=== PATIENT | male | born 1945 | race Caucasian/White ===

== ENCOUNTER → 2017-06-03 | Outpatient (CLI) | payer OTHER | LOC: CIMAGING 07:06 | PROVIDERS: ATTEND Internal Medicine | DX: K76.0 Fatty (change of) liver, not elsewhere classified (principal); K86.9 Disease of pancreas, unspecified | CPT/HCPCS: 76705-PO ==

== ENCOUNTER 2017-09-03 18:23 | Emergency (ER) | payer OTHER ==
--- NOTE | 2017-09-03 18:47 | EDPHY ---
H & P Time Seen by Provider: 09/03/17 18:45 HPI/ROS: CHIEF COMPLAINT: High blood pressure HISTORY OF PRESENT ILLNESS: This is a 71-year-old male with a history of hypertension who presents concerned about elevated blood pressure readings during the day today. He checks his blood pressure daily in at normally runs with systolics from 110-140 over diastolics of 70-90. Today he had a reading as high as 227/120. He takes atenolol 100 mg in the morning and took today's dose. He states that he feels somewhat anxious and jittery. He denies chest pain, shortness of breath, hematuria. He does not have headache or confusion. He has not recently been ill. In the past he has taken atenolol and Zestoretic for his hypertension. The Zestoretic was discontinued when he developed a skin rash. However, the skin rash has persisted. REVIEW OF SYSTEMS: A ten point review of systems was performed and is negative with the exception of the items mentioned in the HPI. Past medical history: 1. Hypertension 2. hemochromatosis, 3. Meniere's 4. ureterolithiasis 5. dermatitis 6. right knee septic arthritis secondary to MRSA 7. 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 He does not use tobacco; quit smoking 40 years ago. He drinks 2-4 glasses of wine nightly but sometimes will go weeks without any alcohol consumption. No drugs. He lives alone. General Appearance: Alert. Vital signs reviewed. Blood pressure 207/131. Heart rate 67. Eyes: Pupils equal and round, no conjunctival injection, no discharge. Anicteric. ENT, Mouth: Mucous membranes are moist, no oropharyngeal erythema or edema. Neck: No lymphadenopathy, supple. No JVD. Respiratory: Lungs are clear to auscultation; no wheezes, rales, or rhonchi. Cardiovascular: Regular rate and rhythm; no murmur, rub, or gallop. Gastrointestinal: Abdomen is soft and nontender, no masses or organomegaly, bowel sounds normal. Skin: Warm and dry, normal color. Scattered erythematous papular rash. Back: Nontender to palpation over the thoracolumbar spine. No CVAT. Extremities: No lower extremity edema, no calf tenderness or swelling. Neurological: Alert and oriented. Moving all four extremities easily and equally. Psychiatric: Normal affect. - Medical/Surgical History Hx Asthma: No Hx Chronic Respiratory Disease: No Hx Diabetes: No Hx Cardiac Disease: No Hx Renal Disease: No Hx Cirrhosis: No Hx Alcoholism: No Hx HIV/AIDS: No Hx Splenectomy or Spleen Trauma: No Other PMH: KIDNEY STONES/HTN, hx maniers - Social History Smoking Status: Never smoked Constitutional: Initial Vital Signs Temperature (C) 36.4 C 09/03/17 18:38 Heart Rate 67 09/03/17 18:38 Respiratory Rate 16 09/03/17 18:38 Blood Pressure 207/131 H 09/03/17 18:38 O2 Sat (%) 97 09/03/17 18:38 O2 Delivery Mode Room Air Allergies/Adverse Reactions: aspirin Allergy (Intermediate, Verified 09/03/17 18:47) Home Medications: Medication Instructions Recorded Atenolol [Tenormin 100 mg (*)] 100 mg PO DAILY 12/26/11 Lisinopril/Hydrochlorothiazide 1 each PO DAILY #30 tablet 09/03/17 [Zestoretic 10-12.5 mg Tablet] Medical Decision Making - Diagnostics EKG Interpretation: 12 lead EKG is interpreted in Trace master View by emergency department physician. Imaging Results: Imaging Impressions Chest X-Ray 09/03/17 19:40 Impression: Borderline cardiac silhouette enlargement, with no evidence of CHF or focal infiltrate. ED Course/Re-evaluation: 71-year-old male with male with elevated blood pressure readings. He is essentially asymptomatic. He was given a dose of lisinopril 20 mg, medication that he used to take in conjunction with his atenolol. His last drink of alcohol was last night. Of concern, his EKG tonight is abnormal with T-wave inversion in the anterolateral leads. This was not seen in EKG done in 2012, which is the most recent EKG that I have for comparison. He has had bleeding in the past after taking aspirin (hematuria? he isn't sure) --has not taken it for many years. 8 PM. Troponin WNL. He continues to be without chest pain. BP now 162/102. Evaluated his chest x-ray. There is mild cardiac enlargement, no infiltrate, calcification of the aortic knob is noted. 8:20 p.m.. Patient re-evaluated. Chest pain-free. Resting comfortably. I spoke with Dr. Terry Domingo, cardiology, who feels that the EKG changes are likely secondary to strain. He recommends follow-up next week. He agrees with reinstituting Zestoretic. I have discussed this with the patient and he is comfortable with this plan. Danger signs that should prompt immediate evaluation were reviewed with him. He will follow up with his primary care physician at [facility] or with 1 of the cardiologists. Differential Diagnosis: I considered a differential diagnosis of hypertension including but not limited to medication noncompliance, dietary noncompliance, obstructive sleep apnea, kidney disease, alcohol abuse. - Data Points Laboratory Results: Laboratory Results 09/03/17 19:15 09/03/17 19:15 09/03/17 09/03/17 09/03/17 19:15 19:15 19:00 WBC 7.07 10^3/uL 10^3/uL (3.80-9.50) RBC 4.61 10^6/uL 10^6/uL (4.40-6.38) Hgb 16.9 g/dL g/dL (13.7-17.5) Hct 47.7 % % (40.0-51.0) MCV 103.5 fL H fL (81.5-99.8) MCH 36.7 pg H pg (27.9-34.1) MCHC 35.4 g/dL g/dL (32.4-36.7) RDW 12.1 % % (11.5-15.2) Plt Count 155 10^3/uL 10^3/uL (150-400) MPV 9.8 fL fL (8.7-11.7) Neut % (Auto) 45.4 % % (39.3-74.2) Lymph % (Auto) 33.0 % % (15.0-45.0) [place] % (Auto) 15.0 % H % (4.5-13.0) Eos % (Auto) 5.8 % % (0.6-7.6) Baso % (Auto) 0.7 % % (0.3-1.7) Nucleat RBC Rel Count 0.0 % % (0.0-0.2) Absolute Neuts (auto) 3.21 10^3/uL 10^3/uL (1.70-6.50) Absolute Lymphs (auto) 2.33 10^3/uL 10^3/uL (1.00-3.00) Absolute Monos (auto) 1.06 10^3/uL H 10^3/uL (0.30-0.80) Absolute Eos (auto) 0.41 10^3/uL H 10^3/uL (0.03-0.40) Absolute Basos (auto) 0.05 10^3/uL 10^3/uL (0.02-0.10) Absolute Nucleated RBC 0.00 10^3/uL 10^3/uL (0-0.01) Immature Gran % 0.1 % % (0.0-1.1) Immature Gran # 0.01 10^3/uL 10^3/uL (0.00-0.10) Sodium 139 mEq/L mEq/L (135-145) Potassium 4.2 mEq/L mEq/L (3.5-5.2) Chloride 101 mEq/L mEq/L (97-110) Carbon Dioxide 28 mEq/l mEq/l (22-31) Anion Gap 10 mEq/L mEq/L (8-16) BUN 14 mg/dL mg/dL (7-23) Creatinine 0.9 mg/dL mg/dL (0.7-1.3) Estimated GFR > 60 Glucose 100 mg/dL mg/dL (70-100) Calcium 9.8 mg/dL mg/dL (8.5-10.4) Troponin I < 0.012 ng/mL ng/mL (0.000-0.034) Urine Color PALE YELLOW Urine Appearance CLEAR Urine pH 7.0 (5.0-7.5) Ur Specific [place] <= 1.005 (1.002-1.030) Urine Protein NEGATIVE (NEGATIVE) Urine Ketones NEGATIVE (NEGATIVE) Urine Blood NEGATIVE (NEGATIVE) Urine Nitrate NEGATIVE (NEGATIVE) Urine Bilirubin NEGATIVE (NEGATIVE) Urine Urobilinogen 0.2 EU EU (0.2-1.0) Ur Leukocyte Esterase NEGATIVE (NEGATIVE) Urine Glucose NEGATIVE (NEGATIVE) Medications Given: Discontinued Medications Lisinopril (Zestril) 20 mg PO EDNOW ONE Stop: 09/03/17 19:29 Last Admin: 09/03/17 19:33 Dose: 20 mg Departure - Departure Disposition: Home, Routine, Self-Care Clinical Impression: Asymptomatic hypertensive urgency Condition: Good Instructions: Hypertension (ED) Additional Instructions: It is important that you see a physician in follow-up next week. You can follow up with your primary care physician at [facility] or with 1 of the cardiologists. I spoke with Dr. Terry Domingo, cardiology, about you tonight and an providing his office number if you would like to follow up with him. Any of his colleagues would also be able to see you. Resume taking Zestoretic. I am starting you on the lower dose of this medication. If you develop any new skin changes discontinue this medication. Continue to check your blood pressure daily and record the readings. Take your blood pressure cuff with you when you go to the follow-up appointment. If you develop severe persistent headache, chest pain, shortness of breath, blood in your urine, new numbness or weakness in an arm or leg, confusion, any new or concerning symptoms--you should be re-evaluated immediately. Referrals: Terry Domingo MD [Medical Doctor] - As per Instructions Prescriptions: Lisinopril/Hydrochlorothiazide [Zestoretic 10-12.5 mg Tablet] 1 each PO DAILY # 30 tablet
--- NOTE | 2017-09-03 19:05 | CPEKG ---
Heart Rate: 69 RR Interval: 870 P-R Interval: 164 QRSD Interval: 78 QT Interval: 412 QTC Interval: 442 P [place]: 30 QRS [place]: -8 T Wave [place]: 137 EKG Severity - ABNORMAL ECG - EKG Impression: SINUS RHYTHM EKG Impression: REPOL ABNRM, PROBABLE ISCHEMIA, ANT-LAT LEADS Electronically Signed By: Sheryl Uriarte 03-Sep-2017 20:46:14
--- NOTE | 2017-09-03 19:12 | CPEKG ---
Heart Rate: 75 RR Interval: 800 P-R Interval: 168 QRSD Interval: 80 QT Interval: 400 QTC Interval: 447 P [place]: 11 QRS [place]: -1 T Wave [place]: 125 EKG Severity - ABNORMAL ECG - EKG Impression: SINUS RHYTHM EKG Impression: ABNORMAL T, CONSIDER ISCHEMIA, ANT-LAT LEADS Electronically Signed By: Sheryl Uriarte 03-Sep-2017 20:46:06
[2017-09-03 19:22] LABS: PLATELET COUNT 155 10^3/uL (150-400)
[2017-09-03] MEDS ORDERED: LISINOPRIL 20 MG TAB PO ONE (19:28)
[2017-09-03 21:04] VITALS: BP 144/94
== END 2017-09-03 21:04 | disposition home or self-care (01) ==
LOC: CED 18:23
DX: I10 Essential (primary) hypertension (principal); I16.0 Hypertensive urgency
CPT/HCPCS: 71046-PO; 80048-PO; 81003-PO; 84484-PO; 85025-PO

== ENCOUNTER → 2017-12-14 | Outpatient (CLI) | payer OTHER | LOC: CIMAGING 15:43 | PROVIDERS: ATTEND Orthopaedic Surgery | DX: M25.471 Effusion, right ankle (principal) | CPT/HCPCS: 93971-PO ==

== ENCOUNTER 2017-12-26 10:02 | Inpatient (IN) | payer OTHER ==
--- NOTE | 2017-12-26 10:27 | EDPHY ---
General Time Seen by Provider: 12/26/17 10:18 Narrative: CHIEF COMPLAINT: Leg pain and swelling, cellulitis is spreading HISTORY OF PRESENT ILLNESS: Patient complains of right lower extremity pain and swelling. He attributes this to worsening cellulitis of the leg. He was admitted to this hospital last week and treated for right leg cellulitis. Treated with IV vancomycin and discharged home with doxycycline and Keflex, which he has continued to take as prescribed. He saw infectious disease physician Dr. Rey on Wednesday. The plan was for close monitoring and potential outpatient IV vancomycin if worsening. Over the past 24 hr he has increasing pain redness of the right lower extremity in the same area. He also has new area of pain redness over the right posterior forearm. No difficulty bending or straightening that area of the arm. He also has a "lump and some pain"in his left calf. No fever. No chest pain or shortness of breath. No other associated complaints or modifying factors. REVIEW OF SYSTEMS: Ten systems reviewed and are negative unless otherwise noted in the HPI PCP: Dr. Bains SPECIALISTS: Dr. Rey, infectious Disease PAST MEDICAL HISTORY: Lower extremity cellulitis, MRSA infection of the knee, kidney stones, hypertension PAST SURGICAL HISTORY: Right lower extremity biopsy, right knee total arthroplasty SOCIAL HISTORY: Nonsmoker. Lives here independently. Semi-retired packaging industry FAMILY HISTORY: Noncontributory EXAMINATION General Appearance: Alert, no distress Head: normocephalic, atraumatic Eyes: Pupils equal and round, no conjunctival pallor or injection ENT, Mouth: Mucous membranes moist Neck: Normal inspection, supple, non-tender Respiratory: Lungs are clear to auscultation. No wheezing rhonchi or crackles Cardiovascular: Regular rate and rhythm. No murmur Gastrointestinal: Abdomen is soft and nondistended Back: non-tender, no bony abnormalities Neurological: A&O, nonfocal, normal gait Skin: Warm and dry. There is a large of cellulitis to the right lower extremity involving the lateral portion of the leg. This extends from the lateral malleolus cephalad to the distal 3rd of the fibula. There is mild vesicular appearance. The area is warm to the touch but without crepitus, necrosis or palpable fluctuance. There is a 2nd area of suspected cellulitis to the right posterior elbow with minimal warmth. Extremities: Minimal tenderness to the left calf on the lateral margin. There is full range of motion of the upper extremities including the elbows without any evidence of septic joint. Psychiatric: Mood and affect normal DIFFERENTIAL DIAGNOSES: Including but not limited to cellulitis, septic joint, sepsis, MRSA, DVT MDM: 10:20 a.m. Right lower extremity cellulitis with early cellulitis of the right posterior elbow without evidence of septic joint. The patient does not meet SIRS criteria. He is in no acute distress. He has been on IV vancomycin inpatient recently, and on oral doxycycline and Keflex since the 20 of December. Seen by infectious disease on Wednesday. He now has worsening symptoms including pain, increasing redness and now left calf pain. Ultrasounds of lower extremities currently being obtained. All obtain laboratory studies and consult Infectious Disease. 11:20 a.m. DVT study is negative. Laboratory studies unremarkable. I will consult infectious disease 11:25 a.m. Case discussed with infectious disease physician Dr. Winslow. She will provide consultation on the patient in the emergency department shortly 11:40 a.m. Case discussed with hospitalist Verito Wiley NP. Patient will be admitted to Dr. Valentino. He is admitted in stable condition. SUPERVISION: Patient was independently examined, but I discussed the case with my primary supervising physician Dr. Sparks. - Diagnostics Imaging Results: Imaging Impressions Extremity Venous Study 12/26/17 10:08 Impression: Negative. No deep venous thrombosis in the right or left lower extremity. Findings discussed with Emergency Department physician, Glenna Sparks on 2017, 10:54. - History Smoking Status: Never smoked - Objective Vital Signs: Initial Vital Signs Temperature (C) 97.7 F 12/26/17 10:14 Heart Rate 70 12/26/17 10:14 Respiratory Rate 16 12/26/17 10:14 Blood Pressure 165/98 H 12/26/17 10:14 O2 Sat (%) 97 12/26/17 10:14 O2 Delivery Mode Room Air Allergies/Adverse Reactions: daptomycin Allergy (Severe, Verified 12/26/17 10:17) Other-Enter Comments aspirin Allergy (Intermediate, Verified 12/26/17 10:17) Home Medications: Medication Instructions Recorded Carboxymethylcellulose 1% [Refresh 1 drop EACHEYE DAILY PRN 12/17/17 Celluvisc (*)] Lisinopril/Hctz 10/12.5 mg 1 ea PO DAILY 12/17/17 [Zestoretic/Prinzide 10/12.5MG (*)] Acetaminophen [Tylenol 325mg (*)] 650 mg PO Q6HRS PRN tab 12/20/17 Cephalexin [Keflex (*)] 500 mg PO QID #0 12/20/17 Doxycycline Hyclate [Vibramycin 100 mg PO BID #14 cap 12/20/17 100 MG (*)] Dupilumab [Dupixent] 300 mg SQ Q14D 12/26/17 Hydrocodone/Acetaminophen [[place] 1 tab PO Q4-6PRN PRN 12/26/17 5/325 (*)] Laboratory Results: Laboratory Results 12/26/17 10:45 12/26/17 10:45 12/26/17 12/26/17 10:45 10:45 WBC 7.73 10^3/uL 10^3/uL (3.80-9.50) RBC 3.86 10^6/uL L 10^6/uL (4.40-6.38) Hgb 14.4 g/dL g/dL (13.7-17.5) Hct 40.9 % % (40.0-51.0) MCV 106.0 fL H fL (81.5-99.8) MCH 37.3 pg H pg (27.9-34.1) MCHC 35.2 g/dL g/dL (32.4-36.7) RDW 11.9 % % (11.5-15.2) Plt Count 212 10^3/uL 10^3/uL (150-400) MPV 9.4 fL fL (8.7-11.7) Neut % (Auto) 64.8 % % (39.3-74.2) Lymph % (Auto) 17.5 % % (15.0-45.0) [place] % (Auto) 14.4 % H % (4.5-13.0) Eos % (Auto) 1.9 % % (0.6-7.6) Baso % (Auto) 0.9 % % (0.3-1.7) Nucleat RBC Rel Count 0.0 % % (0.0-0.2) Absolute Neuts (auto) 5.01 10^3/uL 10^3/uL (1.70-6.50) Absolute Lymphs (auto) 1.35 10^3/uL 10^3/uL (1.00-3.00) Absolute Monos (auto) 1.11 10^3/uL H 10^3/uL (0.30-0.80) Absolute Eos (auto) 0.15 10^3/uL 10^3/uL (0.03-0.40) Absolute Basos (auto) 0.07 10^3/uL 10^3/uL (0.02-0.10) Absolute Nucleated RBC 0.00 10^3/uL 10^3/uL (0-0.01) Immature Gran % 0.5 % % (0.0-1.1) Immature Gran # 0.04 10^3/uL 10^3/uL (0.00-0.10) ESR 17 MM/HR MM/HR (0-20) Sodium 133 mEq/L L mEq/L (135-145) Potassium 4.4 mEq/L mEq/L (3.3-5.0) Chloride 99 mEq/L mEq/L (97-110) Carbon Dioxide 27 mEq/l mEq/l (22-31) Anion Gap 7 mEq/L L mEq/L (8-16) BUN 14 mg/dL mg/dL (7-23) Creatinine 0.8 mg/dL mg/dL (0.7-1.3) Estimated GFR > 60 Glucose 122 mg/dL H mg/dL (70-100) Calcium 9.5 mg/dL mg/dL (8.5-10.4) Departure - Departure Disposition: [facility] Inpatient Acute Clinical Impression: Cellulitis of leg, right Condition: Good Referrals: Deanna Bains MD [Primary Care Provider] - As per Instructions
[2017-12-26 10:54] LABS: PLATELET COUNT 212 10^3/uL (150-400)
[2017-12-26] MEDS ORDERED: VANCOMYCIN HCL/NORMAL SALINE 250 ML IV ONE (12:50)
[2017-12-26] MEDS ORDERED: HYDROCODONE/APAP 5/325 TAB PO PRN (13:06)
[2017-12-26] MEDS ORDERED: ONDANSETRON DISINTEGRATING 4 MG TAB PO PRN (13:06)
[2017-12-26] MEDS ORDERED: ACETAMINOPHEN 325 MG TAB PO PRN (13:06)
[2017-12-26] MEDS ORDERED: ONDANSETRON 4 MG/2 ML VIAL IVP PRN (13:06)
[2017-12-26] MEDS ORDERED: CARBOXYMETHYLCELLULOSE 1% 0.4 ML DROPERETTE EACHEYE PRN (13:08)
[2017-12-26] MEDS ORDERED: DUPILUMAB 300 MG SQ SCH ×2 (13:15→14:00)
--- NOTE | 2017-12-26 13:54 | GHP ---
[f rep st] HISTORY AND PHYSICAL DATE OF ADMISSION: 12/26/2017 CHIEF COMPLAINT: Right leg lower leg cellulitis. HISTORY OF PRESENT ILLNESS: This is a 72-year-old male, who was admitted to the hospital 12/18 to for right lower extremity cellulitis. He was treated with vancomycin because he has a history of MRSA knee infection. He improved in the hospital and was discharged on Keflex and doxycycline. He had done well for a couple of days, but a few days into his oral regimen, he started having worsening pain and erythema. He saw Infectious Disease 2 days ago who thought he should continue on the oral antibiotics and will monitor closely. However, he felt that his erythema was just getting a lot wors e and came to the emergency department. He was denying any fevers or chills. He does, however, have new erythema and discomfort on the right elbow as well as the left calf. No nausea, vomiting. No d iarrhea. REVIEW OF SYSTEMS: A 10-point review of systems was obtained and negative. PAST MEDICAL HISTORY: 1. Recent right lower extremity cellulitis as above. 2. History of MRSA right knee septic joint 2014. 3. Heterozygous for hemachromatosis. 4. Hypertension. SOCIAL HISTORY: No smoking. Does have 2-4 drinks a day. Works per [employer] in [place]. FAMILY HISTORY: Reviewed. Noncontributory. PHYSICAL EXAMINATION: VITAL SIGNS: Afebrile, blood pressure 160/91, heart rate 70, oxygen saturatio n 96% on room air. GENERAL: The patient is well developed in no apparent distress. HEENT: Nonicte tamiko sclerae. Extraocular movements intact. Moist mucous membranes. NECK: Supple. No thyromegaly. LUNGS: Good effort. Clear to auscultation bilaterally. CARDIOVASCULAR: Very soft, systolic murm ur right upper sternal border. ABDOMEN: Positive bowel sounds. Soft, nontender, nondistended. No hepatosplenomegaly. EXTREMITIES: Right lower extremity showing some erythema, warmth of the right a nkle. This area was marked. Right elbow shows a little bit of erythema of the olecranon. Left calf 1-2 cm circular faint erythematous nodule. NEUROLOGIC: Alert and oriented x3. Moving all 4 extremi ties equally. PSYCH: Normal affect. LABS: White blood cell count normal 107, hemoglobin 14. Sodium a little bit low at 133. LFTs last time he was here were normal. Bilateral ultrasound is negative for DVT. ASSESSMENT: A 72-year-old male with recurrent right lower extremity cellulitis. 1. Right lower extremity cellulitis. This area was marked. Will start intravenous vancomycin. Inf ectious Disease will see the patient. Because of the new erythema on the elbow as well as possibly o n the calf, will get an echocardiogram to look for endocarditis. 2. Hypertension. Will continue medications. 3. Mild hyponatremia probably related to hydrochlorothiazide. 4. Alcohol use. Will watch for withdrawal. /[id number]/MODL
[2017-12-26] MEDS ORDERED: MEPERIDINE 25 MG/0.5 ML AMP IVP ONE (13:59)
--- NOTE | 2017-12-26 16:02 | PDMN ---
Medical Necessity Medical necessity: Pt meets inpt criteria per MD order and MCG M-70, Cellulitis , A-2 days. Pt admits w/increasing erythema to RLE cellulitis for which he has recently been hospitalized (12/18-12/20) and treated for and dc'd with cont oral abx's, also new erythema to RUE and possibly L calf. IV ABX's initiated, ID consult pending, ECHO planned to check for endocarditis. Anticipate >2MN due to out pt failure of management of infection and med nec ongoing eval and treatment.
[2017-12-26] MEDS ORDERED: ACETAMINOPHEN 500 MG TAB PO ONE (16:30)
--- NOTE | 2017-12-26 18:16 | ECHO ---
[email or web address] [address] Main: [phone] Fax: [email or web address] Name: TREY BENJAMIN MR#: [id number] Study Date: 12/26/2017 Study Time: 05:10 PM Date of : 1945 Age: 72 year(s) Height: 170.2 cm (67 in.) Weight: 77.11 kg (170 lb.) BSA: 1.89 m2 Gender: Male Examination: Echo Indication: Sepsis, MRSA, R/O endocarditis Image Quality: Contrast: Requested by: Sujey Valentino BP: 111 mmHg/65 mmHg Heart Rate: Rhythm: Normal sinus rhythm Indication: Sepsis, MRSA, R/O endocarditis Procedure Staff Reading Physician: Erlin Villarreal MD Requesting Provider: Conclusions: Normal size left ventricle. Normal global systolic LV function. EF is 64 %. Normal RV function. The mitral valve is normal in appearance and function. The aortic valve is tri-leaflet. There is no aortic valve regurgitation. There is focal calcification on the non-coronary cusp.. The tricuspid valve is normal in appearance and function. Pulmonary valve not well visualized. There is pericardial fat. There is a focal calcification at the tip on the Non Coronary Cusp and cannot exclude the presence of endocarditis. There is no aortic insufficiency. Consider SAMMIE to better evaluate the aortic valve findings. No previous echo for comparison. Measurements: Chambers Valvular Assessment AV/MV Valvular Assessment TV/PV Normal Normal Normal Name Value Range Name Value Range Name Value Range Ao Sunita (MM): 3.8 cm (2.2 cm-3.7 AV Vmax: 1.52 m/s (1 m/s-1.7 PV Vmax: 0.95 m/s (0.6 m/s-0.9 cm) m/s) m/s) IVSd (2D): 1.0 cm (0.6 cm-1.1 AV maxP mmHg ( - ) PV PGmax: 4 mmHg ( - ) cm) LVOT Vmax: 1.19 m/s (0.7 m/s-1.1 LVDd (2D): 4.6 cm (4.2 cm-5.9 m/s) cm) MV E Vmax: 0.55 m/s ( - ) LVDs (2D): 3.0 cm (2.1 cm-4 MV A Vmax: 0.68 m/s ( - ) cm) MV E/A: 0.81 ( - ) LVPWd (2D): 1.0 cm (0.6 cm-1 cm) LVEF (2D): 64 (>=54 %) Patient: TREY BENJAMIN Study Date: 12/26/2017 Page 1 of 2 05:10 PM Continued Measurements: Chambers Name Value LADs Lon.2 cm LA Area: 19.8 cm2 LA Volume: 51 ml LA Volume Index: 27.0 ml/m2 Findings: Left Ventricle: Normal size left ventricle. No LV hypertrophy. Normal global systolic LV function. EF is 64 %. No regional wall motion abnormality. Diastolic dysfunction is present. . Right Ventricle: Normal size right ventricle. Normal RV function. Left Atrium: The left atrium is normal in size. Right Atrium: The right atrium is normal in size. Mitral Valve: The mitral valve is normal in appearance and function. There is no mitral valve regurgitation. Aortic Valve: The aortic valve is tri-leaflet. There is no aortic valve regurgitation. No aortic valve stenosis is present. There is focal calcification on the non-coronary cusp.. Tricuspid Valve: The tricuspid valve is normal in appearance and function. Pulmonic Valve: Pulmonary valve not well visualized. Aorta: The aorta is normal. Pericardium: No pericardial effusion. There is pericardial fat. (No Signature Object) Patient: TREY BENJAMIN Study Date: 12/26/2017 Page 2 of 2 05:10 PM [id number]
[2017-12-27] MEDS: VANCOMYCIN HCL/NORMAL SALINE 250 ML IV SCH ×2 (01:07→12:51)
[2017-12-27 05:08] LABS: PLATELET COUNT 167 10^3/uL (150-400)
[2017-12-27] MEDS: LISINOPRIL/HCTZ 10/12.5 MG 1 EA TAB PO SCH (07:52)
[2017-12-27] MEDS: ENOXAPARIN 40 MG/0.4 ML SYR SC SCH (07:52)
--- NOTE | 2017-12-27 09:43 | ASMTCASEMG ---
Living Arrangements What is your living Answers: Alone arrangement? Who do you live with? Type Of Residence What kind of residence do Answers: House you live in? Discharge Plan Comments Coordination Status Comments Notes: Pt is a 72 y/o man admitted for right ankle and leg swelling. Pt was recently here on 12/18 to 12/20 for a right lower extremity cellulitis. Pt may need ivabx at time of d/c. Needs are TBD at this time. CM to follow Plan: TBD Date Signed: 12/27/2017 09:40 AM Electronically Signed By:KLAUS Forbes
--- NOTE | 2017-12-27 10:33 | PCMIDPN ---
Assessment/Plan: Assessment: Right lower extremity persistent cellulitis-patient re-presented to the emergency room yesterday with increasing redness on the lateral aspect of the ankle. This is in the setting of biopsy confirmed lipodermatosclerosis. The biopsy to prove this was approximately 1 week before his initial presentation with cellulitis. The problem here is that LDS can in its own acute presentation resemble cellulitis as well. The properties of this presentation at argue against it is his episode of rigors yesterday and his temperature elevation to 37.9. We plan on continuing the vancomycin monotherapy empirically and monitoring for change. Probable completion of therapy with IV vancomycin once ready for discharge. Plan: 1. Continue IV vancomycin at present dose. 2. Check trough levels. 3. Follow appearance of right lower extremity inflammation. 12/27/17 10:30 Subjective: Patient is resting in his hospital bed. Notes slight improvement in the redness and warmth on the lateral aspect of his right ankle. Decreased pain from admission. Objective: Vancomycin # 1 Vital Signs Temp Pulse Resp BP Pulse Ox 36.7 C 78 12 129/82 H 93 12/27/17 07:22 12/27/17 07:22 12/27/17 07:22 12/27/17 07:22 12/27/17 07:22 Laboratory Results 12/27/17 04:15 12/27/17 04:15 ESR 17 MM/HR (0-20) 12/26/17 10:45 - Physical Exam General Appearance: WD/WN, alert, no apparent distress, non-toxic Cardiac/Chest: regular rate, rhythm, No tachycardia Extremities: pedal edema, inflammation, swelling, No non-tender, No normal inspection, No calf tenderness, No necrosis Skin: normal color, warm/dry, No rash Neuro/Psych: alert, normal mood/affect, oriented x 3 ICD10 Worksheet Patient Problems: Problems Problem Status Onset Cellulitis of leg, right Acute Ankle cellulitis Acute
[2017-12-27] MEDS: ATENOLOL 100 MG TAB PO SCH (11:12)
--- NOTE | 2017-12-27 18:42 | HOSPPROG ---
Hospitalist Progress Note Assessment/Plan: Assessment: 72-year-old male presents with increased right lower extremity pain , erythema, edema Plan: 1. Possible cellulitis. Acute and refractory, new problem this provider, further workup indicated. The patient's right lower extremity symptoms of erythema, pain, edema have advanced despite appropriate outpatient oral antibiotic therapy consisting of doxycycline and Keflex -discussed with Dr. Pawan Rey, consultation appreciated, he recommends continuing IV vancomycin and monitoring whether the patient's affected area demonstrates any evidence of visible improvement which would suggest that the area is in fact cellulitic and not secondary to biopsy-proven lipodermatosclerosis -ultrasound demonstrating no evidence of DVT -echocardiogram demonstrating no evidence supporting valvular vegetations -blood cultures currently pending -monitor white blood cell count 2. Chromic Lipodermatosclerosis. Patient establish with malariologist, they have recommended TEDs with topical steroids -if the affected area does not improve with IV vancomycin, will refer the patient back to his malariologist with a recommendation to continue her suggested therapy modalities 3. Hypertension. Chronic, continue home medications Diet. Regular Prophylaxis. Moderate risk patient, Lovenox 40 Code. Full Disposition. Anticipated discharge uncertain, requiring ongoing IV vancomycin with trough level monitoring for cellulitis refractory to appropriate outpatient oral antibiotics. Subjective: Patient reports ongoing erythema in the affected area on his right lower extremity Objective: Vital Signs Temp Pulse Resp BP Pulse Ox 36.8 C 77 16 119/75 93 12/27/17 15:08 12/27/17 15:08 12/27/17 15:08 12/27/17 15:08 12/27/17 15:08 Laboratory Results 12/27/17 04:15 12/27/17 04:15 12/26/17 12/27/17 12/28/17 05:59 05:59 05:59 Intake Total 850 Balance 850 - Physical Exam Constitutional: no apparent distress, appears nourished, not in pain, No uncomfortable Cardiovascular: regular rate and rhythym, no murmur, rub, or gallop, edema ( Trace right lower extremity) Respiratory: no respiratory distress, no rales or rhonchi, clear to auscultation Gastrointestinal: normoactive bowel sounds, soft, non-tender abdomen, no palpable masses Skin: warm, erythema (In demarcated area on lateral aspect right lower extremity ), No mottled, No induration, No fluctuance Neurologic: AAOx3, sensation intact bilaterally Psychiatric: interacting appropriately, not anxious, not encephalopathic, thought process linear ICD10 Worksheet Patient Problems: Problems Problem Status Onset Cellulitis of leg, right Acute Ankle cellulitis Acute
[2017-12-28] MEDS: VANCOMYCIN 1 GM in NS 250 ML IV SCH ×2 (01:45→13:07)
[2017-12-28 05:02] LABS: PLATELET COUNT 142 10^3/uL (150-400)
[2017-12-28] MEDS ORDERED: NS 1,000 ML IV ONE (06:00)
[2017-12-28] MEDS: ENOXAPARIN 40 MG/0.4 ML SYR SC SCH (08:53)
[2017-12-28] MEDS: LISINOPRIL/HCTZ 10/12.5 MG 1 EA TAB PO SCH (08:53)
[2017-12-28] MEDS: ATENOLOL 100 MG TAB PO SCH (08:53)
[2017-12-28 11:34] VITALS: BP 131/78
--- NOTE | 2017-12-28 12:10 | PCMIDPN ---
Assessment/Plan: # Right lower extremity cellulitis, ankle still fairly swollen but pain is much improved. Unclear role of Lipodermatosclerosis. Reviewed reasons for failure of oral antibiotics including drug level and potential a solution of resistance of MRSA to doxycycline --DC on vancomycin 1.5 g IV daily at infusion center through 01/03/2018. Follow up with Dr. Rey on Wednesday # Dupixent for eczema: Okay to continue this IL4 inhibitor, minimal infectious complication associated with this agent Medication Vancomycin 1 g IV q.12, trough 12.7, creatinine 0.8 Subjective: Patient feeling less pain Objective: Vital Signs Temp Pulse Resp BP Pulse Ox 36.7 C 66 16 131/78 H 93 12/28/17 11:30 12/28/17 11:30 12/28/17 11:30 12/28/17 11:30 12/28/17 11:30 Laboratory Results 12/28/17 04:20 12/28/17 04:20 12/27/17 12/28/17 12/29/17 05:59 05:59 05:59 Intake Total 1100 Balance 1100 ESR 17 MM/HR (0-20) 12/26/17 10:45 - Physical Exam General Appearance: alert, no apparent distress Respiratory: lungs clear Neck: supple Cardiac/Chest: regular rate, rhythm Extremities: swelling (Right ankle), erythema (Medial ankle, less intense than yesterday associated warmth. No tenderness) Peripheral Pulses: 1+: dorsalis-pedis (R), dorsalis-pedis (L) Skin: other (Scattered plaque like eruptions consistent with eczema) Neuro/Psych: alert, oriented x 3 - Time Spent With Patient Time Spent with Patient: greater than 35 minutes (Coordination care with hospitalist and case management) Time Spent with Patient: Greater than 35 minutes spent on this patients care, greater than 50% of time spent counseling, educating, and coordinating care regarding the above mentioned plan. ICD10 Worksheet Patient Problems: Problems Problem Status Onset Ankle cellulitis Acute Cellulitis of leg, right Acute
--- NOTE | 2017-12-28 12:23 | PDIAF ---
- Diagnosis Diagnosis: RLE cellulitis Code Status: Full Code - Medication Management Discharge Medications: Medications to Continue on Transfer Carboxymethylcellulose 1% [Refresh Celluvisc (*)] 1 drop EACHEYE DAILY PRN 12/17 [Last Taken Unknown] Lisinopril/Hctz 10/12.5 mg [Zestoretic/Prinzide 10/12.5MG (*)] 1 ea PO DAILY [Last Taken 12/26/17] Acetaminophen [Tylenol 325mg (*)] 650 mg PO Q6HRS PRN tab 12/20/17 [Last Taken Unknown] Cephalexin [Keflex (*)] 500 mg PO QID #0 12/20/17 [Last Taken 12/26/17] Doxycycline Hyclate [Vibramycin 100 MG (*)] 100 mg PO BID #14 cap 12/20/17 [ Last Taken 12/26/17] Dupilumab [Dupixent] 300 mg SQ Q14D 12/26/17 [Last Taken 12/15/17] Hydrocodone/Acetaminophen [[place] 5/325 (*)] 1 tab PO Q4-6PRN PRN 12/26/17 [Last Taken 12/25/17] Atenolol [Tenormin 100 mg (*)] 100 mg PO DAILY 12/27/17 [Last Taken Unknown] Fpc Antibiotics: vancomyicn 1.5gm IV daily Fpc Antibiotic Stop Date: 01/03/18 (DC doxycycline and keflex) Discharge Medications: Refer to the Discharge Home Medication list for PRN reason. PICC Care - Routine: N/A (PIV) - Orders Isolation Type: None - Labs/Radiology BMP Date: 12/30/17 (weekly ) CBC w/diff Date: 01/03/18 (weekly wednesday) CMP Date: 01/03/18 (weekly wednesday) Vanco Trough Date and Time: 12/30 and 01/03 prior to dose Call or Fax Lab and Imaging Results to: Pawan Rey MD [id number] - Follow Up Care Current Providers and Referrals: Deanna Bains MD [Primary Care Provider] - As per Instructions Pawan Rey MD [Medical Doctor] - 12/31/17 11:00 am
--- NOTE | 2017-12-28 14:52 | PDIAF ---
- Diagnosis Diagnosis: RLE cellulitis, lipodermatosclerosis Code Status: Full Code - Medication Management Discharge Medications: Medications to Continue on Transfer Carboxymethylcellulose 1% [Refresh Celluvisc (*)] 1 drop EACHEYE DAILY PRN 12/17 [Last Taken Unknown] Lisinopril/Hctz 10/12.5 mg [Zestoretic/Prinzide 10/12.5MG (*)] 1 ea PO DAILY [Last Taken 12/26/17] Acetaminophen [Tylenol 325mg (*)] 650 mg PO Q6HRS PRN tab 12/20/17 [Last Taken Unknown] Dupilumab [Dupixent] 300 mg SQ Q14D 12/26/17 [Last Taken 12/15/17] Hydrocodone/Acetaminophen [[place] 5/325 (*)] 1 tab PO Q4-6PRN PRN 12/26/17 [Last Taken 12/25/17] Atenolol [Tenormin 100 mg (*)] 100 mg PO DAILY 12/27/17 [Last Taken Unknown] Vancomycin [Vancomycin (*)] 1 gm IV Q12H vial 12/28/17 [Last Taken Unknown] Retirement Antibiotics: vancomyicn 1.5gm IV daily Extracorporeal Circulation Specialist Antibiotic Stop Date: 01/03/18 (DC doxycycline and keflex) Discharge Medications: Refer to the Discharge Home Medication list for PRN reason. PICC Care - Routine: N/A (PIV) - Orders Isolation Type: None Oxygen: NA Diet Recommendation: no restrictions on diet - Labs/Radiology BMP Date: 12/30/17 (weekly ) CBC w/diff Date: 01/03/18 (weekly wednesday) CMP Date: 01/03/18 (weekly wednesday) Vanco Trough Date and Time: 12/30 and 01/03 prior to dose Call or Fax Lab and Imaging Results to: Pawan Rey MD [id number] - Follow Up Care Current Providers and Referrals: Deanna Bains MD [Primary Care Provider] - As per Instructions Pawan Rey MD [Medical Doctor] - 12/31/17 11:00 am
--- NOTE | 2017-12-28 15:13 | ASMTDCNOTE ---
Case Management Discharge Discharge Order Complete? Answers: Yes Patient to Obtain Answers: Independently Medications Transportation Arranged Answers: Family/Friends EMTALA Complete Answers: No Case Management Transport Answers: No Form Complete Agency/Facility Transfer Answers: No Report Printed & Faxed to Receiving Agency Family Notified Answers: No Discharge Comments Notes: CM spoke to Dr. Lucas and Dr. Winslow regarding d/c POC. Pt is being discharged today. Pt will follow up at [facility] outpatient infusion center. CM arranged for pt to come everyday until 01/03/18 at 3:30PM. CM notified Dr. Winslow of the appointments. Pt is aware of the appointments. CM went over the [facility] outpatient infusion instruction for registration and arrival. Pt will d/c with peripheral iv. No other needs identified at this time. CM available for changes. Plan: [facility] outpatient infusion; vanco 1.5gm iv daily Date Signed: 12/28/2017 02:55 PM Electronically Signed By:KLAUS Forbes
--- NOTE | 2017-12-28 15:13 | ASMTLACE ---
SRIDHAR Length of stay for Answers: 2 days current admission Acuity / Level of Answers: Yes Care: Did the patient have an inpatient admission? Comorbidities - select Answers: Other Notes: Lower extremity all that apply cellulitis; HTN # of Emergency department Answers: 3-4 visits in the last 6 months Score: 9 Date Signed: 12/28/2017 02:55 PM Electronically Signed By:KLAUS Forbes
--- NOTE | 2017-12-28 18:57 | PDDCSUM ---
Discharge Summary Discharge Summary: DISCHARGE SUMMARY FOLLOW-UP ITEMS: Follow-up with Infectious Disease DATE OF ADMISSION: 12/26/2017 DATE OF DISCHARGE: 12/28/2017 DISCHARGE DIAGNOSES: 1. Possible cellulitis right lower extremity 2. Chronic lipodermatosclerosis, biopsy proven 3. Chronic hypertension CONSULTATIONS: Infectious Disease PROCEDURES / IMAGING: Lower extremity ultrasound demonstrating no DVT CHIEF COMPLAINT: Acute right lower extremity pain, redness, swelling SUBJECTIVE: Patient is feeling well at time of discharge PHYSICAL EXAM ON DISCHARGE: Systolic blood pressure 110-120, heart rate 70, afebrile overnight, satting well on room air, right lower extremity demonstrates some persistent blanchable erythema which is nontender, mildly edematous at the ankle, full range of motion right ankle without any pain elicited LABS ON DISCHARGE: Vancomycin trough 12.7, creatinine 0.8, white blood cell count 3800, ESR 17 HOSPITAL COURSE BY PROBLEM: The patient presented with persistent right lower extremity edema, erythema, tenderness, despite utilizing appropriate outpatient oral antibiotics including Keflex and doxycycline. The patient had recently been seen in the infectious disease clinic and the patient was concerned that the symptoms in the affected area were persisting without improvement despite oral antibiotics. He presented to the emergency room, was initiated on IV vancomycin, and he was seen in consultation by Infectious Disease. It is possible that the affected area demonstrates persistent cellulitis refractory to oral antibiotics, and IV vancomycin would be the treatment of choice for such a condition, given its coverage of possible MRSA, because the patient has had MRSA in the past. Consequently, it was recommended that the patient complete a course of daily IV vancomycin, with an appropriate trough drawn prior to discharge. It is also possible that the affected area is secondary to lipodermatosclerosis , which is a dermatologic, inflammatory condition, which should be treated by a signal mechanic. The patient has an outpatient signal mechanic who is recommended compression stockings as well as topical steroids and a TNF alpha inhibitor. The patient has continued this oral medication but has been non adherent to the topical steroid during this episode of care. Given that lipodermatosclerosis can cause inflammation which predisposes to cellulitis, and the patient had a biopsy which was also at the affected site which can also resultant cellulitis, there is no objective way to delineate whether the patient is experiencing concomitant cellulitis to his lipodermatosclerosis. Consequently, I have strongly suggested to the patient that he continue to follow up with his signal mechanic as well as Infectious Disease provider, to address treating this underlying chronic inflammatory skin condition, as it may be the common denominator to the patient's presenting situation. DISCHARGE MEDICATIONS: Please see official discharge medication reconciliation sheet in chart , vancomycin 1.5 g daily, continue all other home medications. DISCHARGE INSTRUCTIONS: Please follow up with Infectious Disease and Dermatology.
== END 2017-12-28 15:53 | disposition home or self-care (01) | DRG 603 ==
LOC: F3E 13:09
PROVIDERS: ADMIT Internal Medicine; ATTEND Internal Medicine
DX: L03.115 Cellulitis of right lower limb (principal); I83.891 Varicose veins of right lower extremity with other complications; I10 Essential (primary) hypertension; L30.9 Dermatitis, unspecified; Z86.14 Personal history of Methicillin resistant Staphylococcus aureus infection; Z96.651 Presence of right artificial knee joint; Z72.89 Other problems related to lifestyle
CPT/HCPCS: 82607-90; 96374; J1650; J2175; J3370

== ENCOUNTER 2018-06-25 12:54 | Emergency (ER) | payer OTHER ==
[2018-06-25 13:04] VITALS: BP 137/89
--- NOTE | 2018-06-25 14:05 | EDPHY ---
H & P Time Seen by Provider: 06/25/18 13:01 HPI/ROS: CHIEF COMPLAINT: Rash HISTORY OF PRESENT ILLNESS: Patient states he developed a rash that was noted yesterday when he was being seen by his outsole paraffiner. He told Dr. Fernandez , outsole paraffiner, that he had about 2 days of pain to that area. He states that Wednesday evening he noticed some soreness and tenderness to the lumbar spine and left flank. He was unaware of rash until noticed by the outsole paraffiner. He denies other lesions. He denies nausea, vomiting, fever. He has had no abdominal pain. Contents of 10 point review of systems otherwise negative except for what is mentioned in HPI. General Appearance: Alert, no distress. Eyes: Pupils equal and round no pallor or injection. ENT, Mouth: Mucous membranes moist. Respiratory: There are no retractions, lungs are clear to auscultation. Cardiovascular: Regular rate and rhythm. Gastrointestinal: Abdomen is soft and nontender, no masses, bowel sounds normal. Neurological: Awake, alert, no focal neurologic deficits. Skin: Warm and dry, raise, erythematous, papular and macular lesions from the mid lumbar region to left flank and lower abdomen. Does not cross the midline. Does not involve the groin a. No signs of secondary infection. Musculoskeletal: Neck is supple nontender. Extremities are symmetrical, full range of motion, no edema. Psychiatric: Patient is oriented X 3, there is no agitation. Medical/surgical history: Kidney stones, hypertension, septic knee in 2015, surgeries for knee. Social history: Nonsmoker. Smoking Status: Former smoker Constitutional: Initial Vital Signs Temperature (C) 36.6 C 06/25/18 12:59 Heart Rate 78 06/25/18 12:59 Respiratory Rate 16 06/25/18 12:59 Blood Pressure 137/89 H 06/25/18 12:59 O2 Sat (%) 95 06/25/18 12:59 O2 Delivery Mode Room Air Allergies/Adverse Reactions: daptomycin Allergy (Severe, Verified 06/25/18 12:58) Other-Enter Comments aspirin Allergy (Intermediate, Verified 06/25/18 12:58) Home Medications: Medication Instructions Recorded Lisinopril/Hctz 10/12.5 mg 1 ea PO DAILY 12/17/17 [Zestoretic/Prinzide 10/12.5MG (*)] Atenolol [Tenormin 100 mg (*)] 100 mg PO DAILY 12/27/17 Valacyclovir HCl [Valtrex] 1,000 mg PO TID #21 tab 06/25/18 Medical Decision Making Differential Diagnosis: Differential diagnosis includes but is not limited to abscess, cellulitis, shingles, disseminated herpes. After evaluation in the emergency department patient with classic shingles rash without signs of complications or systemic dissemination. No immunocompromise. Will treat with valacyclovir. Discussed return precautions as well as follow-up. Stable for discharge. Departure - Departure Disposition: Home, Routine, Self-Care Clinical Impression: Shingles rash Condition: Good Instructions: Valacyclovir (By mouth), Shingles (ED) Additional Instructions: Take medications as prescribed. Follow up with her primary care physician in 4- 5 days if not improving. Return to this emergency department if he developed fevers, body aches, other worsening symptoms. Referrals: Deanna Bains MD [Primary Care Provider] - As per Instructions Prescriptions: Valacyclovir HCl [Valtrex] 1,000 mg PO TID #21 tab
== END 2018-06-25 14:21 | disposition home or self-care (01) ==
LOC: CED 12:54
DX: B02.9 Zoster without complications (principal); Z86.19 Personal history of other infectious and parasitic diseases; Z87.891 Personal history of nicotine dependence
CPT/HCPCS: 99283-ER